=== PATIENT | male | born 1985 | race Caucasian/White ===

== ENCOUNTER 2018-11-25 00:10 | Emergency (ER) | payer SELFPAY ==
[~2018-11-25] VITALS: Ht 177.8 cm; Wt 67.1 kg
[2018-11-25 00:30] VITALS: BP 136/72
[2018-11-25] MEDS ORDERED: METH-38 PO (00:49)
[2018-11-25] MEDS ORDERED: DICL50TA4 PO (00:49)
--- NOTE | 2018-11-25 00:50 | PHYS DOC ---
Past Medical History Past Medical History: Anxiety, Depression Past Surgical History: Other Additional Past Surgical Histo: Lipoma Removed Alcohol Use: Occasionally Drug Use: Methamphetamine Adult General Chief Complaint Chief Complaint: BACK PAIN - NO INJURY [facility] HPI Patient is a 33-year-old male who presents with complaint of right-sided lower back pain that started about 4 days ago. He states the pain radiates down into his right buttock. He denies any radiation of the pain into his leg. He also denies any loss of bowel or bladder control. He rates pain as being moderate and states the pain is worsened when he tries to bend over and with other movements. He denies any urinary discomfort and has had no fever. Review of Systems Review of Systems Constitutional: Denies fever or chills [] Respiratory: Denies cough or shortness of breath [] Cardiovascular: No additional information not addressed in HPI [] GI: Denies abdominal pain, nausea, vomiting or diarrhea [] : Denies dysuria or hematuria [] Musculoskeletal: Complains of right-sided lower back pain [] Integument: Denies rash or skin lesions [] Neurologic: Denies headache, focal weakness or sensory changes [] Allergies Allergies Allergies Coded Allergies Type Severity Reaction Last Updated Verified No Known Drug Allergies 04/09/14 No Physical Exam Physical Exam Constitutional: Well developed, well nourished, no acute distress, non-toxic appearance. [] Neck: Normal range of motion, no tenderness, supple, no stridor. [] Cardiovascular: Regular rate and rhythm [] Lungs & Thorax: Bilateral breath sounds clear to auscultation [] Skin: Warm, dry, no erythema, no rash. [] Back: There is tenderness to palpation with palpable spasm noted in the right sided paraspinal musculature. [] Current Patient Data Vital Signs Vital Signs Date Time Temp Pulse Resp B/P (MAP) Pulse Ox O2 Delivery O2 Flow Rate FiO2 11/25/18 00:30 99.0 98 18 136/72 (93) 99 Room Air 99.0 EKG EKG [] Radiology/Procedures Radiology/Procedures [] Course & Med Decision Making Course & Med Decision Making Pertinent Labs and Imaging studies reviewed. (See chart for details) [] Dragon Disclaimer Dragon Disclaimer This electronic medical record was generated, in whole or in part, using a voice recognition dictation system. Departure Departure Impression: Primary Impression: Low back pain Disposition: HOME, SELF-CARE Condition: STABLE Referrals: NO PCP (PCP) Patient Instructions: Back Pain, Adult Scripts Diclofenac Sodium (DICLOFENAC SODIUM) 50 Mg Tablet.dr 1 TAB PO BID PRN for PAIN, #20 TAB Prov: RONNY YI Jr. DO 11/25/18 Methocarbamol (ROBAXIN-750) 750 Mg Tablet 750 MG PO QID PRN for MUSCLE SPASMS, #20 TAB Prov: RONNY YI Jr. DO 11/25/18 Problem Qualifiers Primary Impression: Low back pain Chronicity: acute Back pain laterality: right Sciatica presence: unspecified whether sciatica present Qualified Codes: M54.5 - Low back pain RONNY YI Jr. DO Nov 25, 2018 00:50
[2018-11-25] MEDS ORDERED: DEXAMETHASONE SOD PHOS 20 MG/5 ML VIAL. PO ONE (01:00)
[2018-11-25] MEDS ORDERED: IBUPROFEN 600 MG TABLET. PO ONE (01:00)
[2018-11-25 01:01] LABS: BILIRUBIN,URINE SMALL (NEG); CLARITY,URINE TURBID; COLOR,URINE YELLOW; NITRITE,URINE NEGATIVE (NEG); PH,URINE 6.5; PROTEIN,URINE NEGATIVE (NEG-TRACE); UROBILINOGEN,URINE 0.2 mg/dL (0.2 mg/dL)
[2018-11-25 01:10] LABS: AMORPHOUS SEDIMENT,UR PRESENT /HPF; BACTERIA,URINE FEW /HPF (0-FEW); RBC,URINE OCC /HPF (0-2); SQUAMOUS EPITHELIAL CELL,UR FEW /LPF
== END 2018-11-25 01:50 | disposition home or self-care (01) ==
LOC: ER 00:10
DX: M54.5 Low back pain (principal); F41.9 Anxiety disorder, unspecified; F32.9 Major depressive disorder, single episode, unspecified
CPT/HCPCS: 81001; 87086; 99283; J1100

== ENCOUNTER 2019-04-09 17:08 | Emergency (ER) | payer SELFPAY ==
[~2019-04-09] VITALS: Ht 180.3 cm; Wt 58.1 kg
[~2019-04-09 17:08] MED LIST: DICL50TA4 PO; METH-38 PO
[2019-04-09 17:11] VITALS: BP 120/85
[2019-04-09 17:47] LABS: BASO # 0.1 x10^3/uL (0.0-0.2); BASO % 1 % (0-3); EOS # 0.3 x10^3/uL (0.0-0.7); EOS % 3 % (0-3); HEMOGLOBIN 14.2 g/dL (13.0-17.5); LYMPH # 1.8 x10^3/uL (1.0-4.8); LYMPH % 21 % (24-48); MEAN CORPUSCULAR HEMOGLOBIN 29 pg (25-35); MEAN CORPUSCULAR HGB CONC 33 g/dL (31-37); MEAN CORPUSCULAR VOLUME 87 fL (79-100); MONO # 0.8 x10^3/uL (0.0-1.1); MONO % 9 % (0-9); NEUT # 5.6 x10^3uL (1.8-7.7); NEUT % 65 % (31-73); PLATELET COUNT 269 x10^3/uL (140-400); RED BLOOD COUNT 4.92 x10^6/uL (4.30-5.70); RED CELL DISTRIBUTION WIDTH 12.7 % (11.5-14.5); WHITE BLOOD COUNT 8.5 x10^3/uL (4.0-11.0)
[2019-04-09 17:49] LABS: BILIRUBIN,URINE SMALL (NEG); CLARITY,URINE CLEAR; COLOR,URINE AMBER; NITRITE,URINE NEGATIVE (NEG); PROTEIN,URINE NEGATIVE (NEG-TRACE)
[2019-04-09 17:55] LABS: SQUAMOUS EPITHELIAL CELL,UR FEW /LPF
[2019-04-09 17:56] LABS: AMORPHOUS SEDIMENT,UR PRESENT /HPF; BACTERIA,URINE 0 /HPF (0-FEW); GFR 87.2; POTASSIUM 4.1 mmol/L (3.5-5.1)
[2019-04-09 18:00] LABS: BARBITURATES NEG (NEG); BENZODIAZEPINES NEG (NEG); CANNABINOIDS NEG (NEG); COCAINE NEG (NEG); METHADONE NEG (NEG); OPIATES NEG (NEG); PHENCYCLIDINE NEG (NEG)
[2019-04-09] MEDS ORDERED: MORPHINE SULFATE 10 MG/ML VIAL. IV ONE (18:00)
[2019-04-09 18:01] LABS: AMPHETAMINE/METHAMPHETAMINE POS (NEG)
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
[2019-04-09] MEDS ORDERED: CYCL10TA2 PO (18:42)
[2019-04-09] MEDS ORDERED: DICL50TA4 PO (18:42)
== END 2019-04-09 19:18 | disposition home or self-care (01) ==
LOC: ER 17:08
DX: S22.42XA Multiple fractures of ribs, left side, initial encounter for closed fracture (principal); F15.20 Other stimulant dependence, uncomplicated; F41.9 Anxiety disorder, unspecified; F32.9 Major depressive disorder, single episode, unspecified; Y08.89XA Assault by other specified means, initial encounter; Y93.89 Activity, other specified; Y92.89 Other specified places as the place of occurrence of the external cause; Y99.8 Other external cause status
CPT/HCPCS: 36415; 71250; 80048; 80307; 81001; 85025; 96374; 99285; G0480; J2270

== ENCOUNTER 2019-12-21 18:58 | Emergency (ER) | payer SELFPAY ==
[~2019-12-21] VITALS: Ht 177.8 cm; Wt 71.8 kg
[~2019-12-21 18:58] MED LIST changes: +CYCL10TA2 PO
[2019-12-21 19:13] VITALS: BP 135/84
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
== END 2019-12-21 20:01 | disposition home or self-care (01) ==
LOC: ER 18:58
DX: J02.9 Acute pharyngitis, unspecified (principal); R09.81 Nasal congestion; R09.89 Other specified symptoms and signs involving the circulatory and respiratory systems; R53.83 Other fatigue; R05 Cough; F41.9 Anxiety disorder, unspecified; F32.9 Major depressive disorder, single episode, unspecified; F15.90 Other stimulant use, unspecified, uncomplicated; F17.200 Nicotine dependence, unspecified, uncomplicated; Z98.890 Other specified postprocedural states
CPT/HCPCS: 99281

== ENCOUNTER 2019-12-24 22:48 | Emergency (ER) | payer SELFPAY ==
[~2019-12-24] VITALS: Ht 177.8 cm; Wt 68.1 kg
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
[2019-12-25 00:24] LABS: INFLUENZA A PATIENT NEGATIVE (NEGATIVE); INFLUENZA B PATIENT NEGATIVE (NEGATIVE)
[2019-12-25] MEDS ORDERED: ACETAMINOPHEN 325 MG TABLET. PO ONE (01:00)
[2019-12-25 01:15] LABS: BASO # 0.1 x10^3/uL (0.0-0.2); BASO % 1 % (0-3); EOS # 0.4 x10^3/uL (0.0-0.7); EOS % 4 % (0-3); HEMATOCRIT 43.7 % (39.0-53.0); HEMOGLOBIN 14.8 g/dL (13.0-17.5); LYMPH # 2.3 x10^3/uL (1.0-4.8); LYMPH % 24 % (24-48); MEAN CORPUSCULAR HEMOGLOBIN 29 pg (25-35); MEAN CORPUSCULAR HGB CONC 34 g/dL (31-37); MEAN CORPUSCULAR VOLUME 85 fL (79-100); MONO # 1.1 x10^3/uL (0.0-1.1); MONO % 12 % (0-9); NEUT # 5.6 x10^3/uL (1.8-7.7); NEUT % 59 % (31-73); PLATELET COUNT 255 x10^3/uL (140-400); RED BLOOD COUNT 5.18 x10^6/uL (4.30-5.70); RED CELL DISTRIBUTION WIDTH 13.7 % (11.5-14.5); WHITE BLOOD COUNT 9.4 x10^3/uL (4.0-11.0)
[2019-12-25 01:40] LABS: CALCIUM 9.5 mg/dL (8.5-10.1); CREATININE 0.9 mg/dL (0.7-1.3); GFR 97.8; POTASSIUM 3.8 mmol/L (3.5-5.1)
[2019-12-25 01:53] LABS: ALBUMIN 4.5 g/dL (3.4-5.0); ALBUMIN/GLOBULIN RATIO 1.3 (1.0-1.7); TOTAL BILIRUBIN 0.4 mg/dL (0.2-1.0)
[2019-12-25 01:54] LABS: SALIC 4.4 mg/dL (2.8-20.0)
[2019-12-25 01:55] LABS: ACETAMIN < 2 mcg/ml (10-30); ETHANOL < 10 mg/dL (0-10)
[2019-12-25 02:03] LABS: AMPHETAMINE/METHAMPHETAMINE POS (NEG); BARBITURATES NEG (NEG); BENZODIAZEPINES NEG (NEG); CANNABINOIDS NEG (NEG); COCAINE NEG (NEG); METHADONE NEG (NEG); OPIATES NEG (NEG); PHENCYCLIDINE NEG (NEG)
[2019-12-25] MEDS ORDERED: hydrOXYzine 25 MG TABLET PO ONE (02:30)
[2019-12-25 05:19] VITALS: BP 116/66
== END 2019-12-25 05:25 ==
LOC: ER 22:48
DX: B34.9 Viral infection, unspecified (principal); R44.3 Hallucinations, unspecified; H92.09 Otalgia, unspecified ear; F41.9 Anxiety disorder, unspecified; F32.9 Major depressive disorder, single episode, unspecified; F15.10 Other stimulant abuse, uncomplicated; F17.200 Nicotine dependence, unspecified, uncomplicated; Z98.890 Other specified postprocedural states
CPT/HCPCS: 36415; 80053; 80307; 80329; 85025; 87804; 99283; G0480

== ENCOUNTER 2020-01-01 12:04 | Emergency (ER) | payer SELFPAY ==
[~2020-01-01] VITALS: Ht 177.8 cm; Wt 63.6 kg
--- NOTE | 2020-01-01 13:04 | PHYS DOC ---
Past Medical History Past Medical History: Anxiety, Depression Past Surgical History: Other Additional Past Surgical Histo: Lipoma Removed Smoking Status: Current Every Day Smoker Alcohol Use: None Drug Use: Methamphetamine Adult General Chief Complaint Chief Complaint: OTHER COMPLAINTS HPI HPI Patient is a 34 year old male who presents requesting a note for work. Patient reports being seen in the ED on December 24, 2019 and being diagnosed with influenza. He states he has not gone to work since then and would like a note to return to work otherwise is going to get fired. He states he was taking care of his ailing father hence the reason he missed work. He has no complaints today. Review of Systems Review of Systems Constitutional: Requests note to return to work. Denies fever or chills [] Musculoskeletal: Denies back pain or joint pain [] Integument: Denies rash or skin lesions [] Neurologic: Denies headache, focal weakness or sensory changes [] All other systems were reviewed and found to be within normal limits, except as documented in this note. Allergies Allergies Allergies Coded Allergies Type Severity Reaction Last Updated Verified No Known Drug Allergies 04/09/14 No Physical Exam Physical Exam Constitutional: Well developed, well nourished, no acute distress, non-toxic appearance. [] Skin: Warm, dry, no erythema, no rash. [] Back: No tenderness, no CVA tenderness. [] Extremities: No tenderness, no cyanosis, no clubbing, ROM intact, no edema. [] Neurologic: Alert and oriented X 3, normal motor function, normal sensory function, no focal deficits noted. [] Psychologic: Affect normal, judgement normal, mood normal. [] Current Patient Data Vital Signs Vital Signs Date Time Temp Pulse Resp B/P (MAP) Pulse Ox O2 Delivery O2 Flow Rate FiO2 01/01/20 12:41 97.4 71 18 115/68 (84) 100 Room Air 97.4 EKG EKG [] Radiology/Procedures Radiology/Procedures [] Course & Med Decision Making Course & Med Decision Making Pertinent Labs and Imaging studies reviewed. (See chart for details) This is a 34-year-old male patient presenting today requesting a note to return to work. Patient was seen in the ED on December, he apparently has not returned to work since then. He has no medical complaint today Patient received a medical screening exam per hospital protocol Dragon Disclaimer Dragon Disclaimer This electronic medical record was generated, in whole or in part, using a voice recognition dictation system. Departure Departure Impression: Primary Impression: Encounter for medical screening examination Disposition: 07 AGAINST MEDICAL ADVICE Condition: STABLE Referrals: NO PCP (PCP) HEBERT MILLS APRN Jan 01, 2020 13:03
== END 2020-01-01 13:06 | disposition left against medical advice (07) ==
LOC: ER 12:04
DX: J11.1 Influenza due to unidentified influenza virus with other respiratory manifestations (principal); F41.9 Anxiety disorder, unspecified; F32.9 Major depressive disorder, single episode, unspecified; F15.90 Other stimulant use, unspecified, uncomplicated; F17.200 Nicotine dependence, unspecified, uncomplicated; Z98.890 Other specified postprocedural states
CPT/HCPCS: 99281

== ENCOUNTER 2020-09-22 17:04 | Emergency (ER) | payer SELFPAY ==
[~2020-09-22] VITALS: Ht 177.8 cm; Wt 68.0 kg
[2020-09-22 17:21] VITALS: BP 131/81
[2020-09-22 19:17] LABS: BARBITURATES NEG (NEG); BENZODIAZEPINES NEG (NEG); CANNABINOIDS NEG (NEG); COCAINE NEG (NEG); METHADONE NEG (NEG); OPIATES NEG (NEG); PHENCYCLIDINE NEG (NEG)
[2020-09-22 19:22] LABS: AMPHETAMINE/METHAMPHETAMINE POS (NEG)
--- NOTE | 2020-09-22 19:34 | ED.ADGEN ---
Past Medical History Past Medical History: Anxiety, Depression Past Surgical History: Other Additional Past Surgical Histo: Lipoma Removed Smoking Status: Current Every Day Smoker Alcohol Use: None Drug Use: Methamphetamine Social History Narrative: LAST USED METH 1 WEEK AGO General Adult EDM: Chief Complaint: ABSCESS HPI: HPI: Patient is a 35 year old male who presents to the emergency department with complaints of right forearm tingling and and a red area that drained pus. Patient reports concerns of an infection. He first noticed the symptoms approximately 1 week ago. He denies erythema, edema, or warmth of the affected area. Patient denies any known injury. He reports that he does use methamphetamine but denies any recent injection into the site. Patient denies any fever, cough, sore throat, body aches, abdominal pain, nausea, vomiting, or diarrhea. He currently denies any pain. Review of Systems: Review of Systems: Constitutional: Denies fever or chills. [] HENT: Denies nasal congestion or sore throat. [] Respiratory: Denies cough or shortness of breath. [] Cardiovascular: Denies chest pain or edema. [] GI: Denies abdominal pain, nausea, vomiting, or diarrhea. [] Musculoskeletal: Denies back pain or joint pain. [] Integument: See HPI Neurologic: Denies headache, focal weakness or sensory changes. [] Psychiatric: Denies depression or anxiety. [] Complete ROS is negative unless otherwise stated in the HPI. Allergies: Allergies: Allergies Coded Allergies Type Severity Reaction Last Updated Verified No Known Drug Allergies 04/09/14 No Physical Exam: PE: Constitutional: Well developed, well nourished, no acute distress, non-toxic appearance, anxious. [] HENT: Normocephalic, atraumatic, bilateral external ears normal, nose normal. [] Eyes: PERRLA, EOMI, conjunctiva normal, no discharge. [] Neck: Normal range of motion, no stridor. [] Cardiovascular:Heart rate regular rhythm Lungs & Thorax: Respirations even and unlabored, no retractions, no respiratory distress Skin: Warm, dry, no erythema, no rash; 0.5 centimeters scabbed area noted to the lateral right forearm, mild erythema, no streaking, no edema, no warmth; appears to be healing insect bite or wound [] Extremities: No cyanosis, ROM intact, no edema. [] Neurologic: Alert and oriented X 3, no focal deficits noted. [] Psychologic: Affect normal, judgement normal, mood normal. [] Current Patient Data: Labs: Laboratory Tests Test 09/22/20 18:54 Urine Opiates Screen Neg (NEG) Urine Methadone Screen Neg (NEG) Urine Barbiturates Neg (NEG) Urine Phencyclidine Screen Neg (NEG) Urine Amphetamine/Methamphetamine Pos (NEG) Urine Benzodiazepines Screen Neg (NEG) Urine Cocaine Screen Neg (NEG) Urine Cannabinoids Screen Neg (NEG) Urine Ethyl Alcohol Neg (NEG) Vital Signs: Vital Signs Date Time Temp Pulse Resp B/P (MAP) Pulse Ox O2 Delivery O2 Flow Rate FiO2 09/22/20 17:21 98.6 100 18 131/81 (98) 99 Room Air 98.6 EKG: EKG: [] Heart Score: Risk Factors: Risk Factors: DM, Current or recent (<one month) smoker, HTN, HLP, family history of CAD, obesity. Risk Scores: Score 0 - 3: 2.5% MACE over next 6 weeks - Discharge Home Score 4 - 6: 20.3% MACE over next 6 weeks - Admit for Clinical Observation Score 7 - 10: 72.7% MACE over next 6 weeks - Early Invasive Strategies Radiology/Procedures: Radiology/Procedures: [] Course & Med Decision Making: Course & Med Decision Making Pertinent Labs and Imaging studies reviewed. (See chart for details) [] Dragon Disclaimer: Dragon Disclaimer: This electronic medical record was generated, in whole or in part, using a voice recognition dictation system. Departure Departure Impression: Primary Impression: Methamphetamine use Additional Impression: Infected insect bite of forearm Disposition: 01 DC HOME SELF CARE/HOMELESS Condition: STABLE Referrals: NO PCP (PCP) Patient Instructions: Insect Bite, [id number] Additional Instructions: Apply Neosporin or triple antibiotic ointment to the affected area twice daily as needed. You can take Tylenol or ibuprofen as needed for pain. I recommend that you stop using methamphetamine. Follow-up with a primary care doctor for further evaluation, return to the ER if symptoms worsen or fever develops. [facility] [address] [place], [place] [id number] [facility] [address] [place] [address] [facility] [address] [place] [address] [facility] [address] [place] [address] [facility] [address] [place] [address] [facility] [address] [place] [address] [facility] [address] [place] [address] [facility] [address] [place] [address] [facility] [address] [place] [address] [facility] [address] [place] [address] Problem Qualifiers Additional Impression: Infected insect bite of forearm Encounter type: initial encounter Laterality: right Qualified Codes: S50.861A - Insect bite (nonvenomous) of right forearm, initial encounter; L08.9 - Local infection of the skin and subcutaneous tissue, unspecified; W57.XXXA - Bitten or stung by nonvenomous insect and other nonvenomous arthropods, initial encounter JUVENAL CARR APRN Sep 22, 2020 19:34
== END 2020-09-22 20:15 | disposition home or self-care (01) ==
LOC: ER 17:04
DX: S50.861A Insect bite (nonvenomous) of right forearm, initial encounter (principal); L53.9 Erythematous condition, unspecified; F41.9 Anxiety disorder, unspecified; F32.9 Major depressive disorder, single episode, unspecified; F17.200 Nicotine dependence, unspecified, uncomplicated; F19.90 Other psychoactive substance use, unspecified, uncomplicated; Z98.890 Other specified postprocedural states; W57.XXXA Bitten or stung by nonvenomous insect and other nonvenomous arthropods, initial encounter; Y93.89 Activity, other specified; Y92.89 Other specified places as the place of occurrence of the external cause; Y99.8 Other external cause status
CPT/HCPCS: 80307; 99283

== ENCOUNTER 2021-11-23 15:07 | Emergency (ER) | payer SELFPAY ==
[~2021-11-23 15:07] MED LIST changes: +CYCL10TA19 PO; -CYCL10TA2 PO
== END 2021-11-23 18:50 | disposition left against medical advice (07) ==
LOC: ER 15:07
DX: L98.8 Other specified disorders of the skin and subcutaneous tissue (principal); Z53.21 Procedure and treatment not carried out due to patient leaving prior to being seen by health care provider